=== PATIENT | female | born 1990 ===

== ENCOUNTER 2017-10-28 09:02 | Emergency (ER) | payer OTHER ==
[2017-10-28 09:08] VITALS: BP 131/87; PULSE 105; RESP 18; TEMP 98.3; O2SAT 100
[2017-10-28] MEDS ORDERED: Naproxen 550 mg Tab PO STA (10:14)
[2017-10-28] MEDS ORDERED: Naproxen 550 mg Tab PO ONE (10:37)
--- NOTE | 2017-10-28 10:40 | RAD ---
PROCEDURE: Right Hand Radiographs. HISTORY: Injury COMPARISON: None. FINDINGS: BONES: Bone alignment and mineralization are normal. There is no acute displaced fracture or bone destruction. JOINTS: Normal. No osteoarthritic changes. SOFT TISSUES: Normal. OTHER FINDINGS: None. IMPRESSION: No acute fracture or dislocation.
--- NOTE | 2017-10-28 11:35 | C.PDOC ---
History Of Present Illness Pt states she injured her right hand 2 days ago. Time Seen by Provider: 10/28/17 10:10 Chief Complaint (Nursing): Finger,Hand,&Wrist History Per: Patient Onset/Duration Of Symptoms: Days (2) Current Symptoms Are (Timing): Still Present Quality: "Pain" Severity: Moderate Hands/Wrist (Pic): 1 - pain/swelling Exacerbating Factor(s): Strenuous Use Of Affected Area Additional History Per: Prior Records Past Medical History Reviewed: Historical Data, Nursing Documentation, Vital Signs Vital Signs: Last Vital Signs Temp 98.3 F 10/28/17 09:06 Pulse 105 H 10/28/17 09:06 Resp 18 10/28/17 09:06 BP 131/87 10/28/17 09:06 Pulse Ox 100 10/28/17 09:06 - Medical History PMH: No Chronic Diseases Family History: States: Unknown Family Hx - Social History Hx Alcohol Use: Yes Hx Substance Use: No - Immunization History Hx Tetanus Toxoid Vaccination: No Hx Influenza Vaccination: Yes Hx Pneumococcal Vaccination: No Review Of Systems Except As Marked, All Systems Reviewed And Found Negative. Constitutional: Negative for: Fever, Weakness Cardiovascular: Negative for: Chest Pain Respiratory: Negative for: Shortness of Breath Gastrointestinal: Negative for: Vomiting, Abdominal Pain Musculoskeletal: Positive for: Hand Pain (right). Negative for: Neck Pain, Arm Pain Neurological: Negative for: Weakness, Numbness Physical Exam - Physical Exam Appears: Non-toxic, No Acute Distress Skin: Normal Color, Warm, Dry, No Rash Head: Atraumatic, Normacephalic Eye(s): bilateral: PERRL, EOMI Neck: Normal ROM, Supple Extremity: Normal ROM, Tenderness (right middle finger), Capillary Refill (wnl) , Swelling (around PIP joint of right middle finger) Pulses: Right Radial: Normal Neurological/Psych: Oriented x3, Normal Motor, Normal Sensation ED Course And Treatment O2 Sat by Pulse Oximetry: 100 Pulse Ox Interpretation: Normal - Other Rad Right hand x-rays X-Ray: Viewed By Me, Read By Radiologist Interpretation: IMPRESSION: No acute fracture or dislocation. Progress Note: Right middle finger was placed in finger splint by automotive technology instructor and checked by me. Reassessment Condition: Improved Disposition Counseled Patient/Family Regarding: Studies Performed, Diagnosis, Need For Followup, Rx Given - Disposition Referrals: Raul Armstrong MD [Staff Provider] - Disposition: HOME/ ROUTINE Disposition Time: 11:36 Condition: IMPROVED Additional Instructions: Keep your finger in the splint provided until better. Follow up with a Hand specialist. Return to the ER if you develop worsening of symptoms or if you have any other concerns. Prescriptions: Naproxen [Naprosyn] 1 tab PO BID PRN #20 tab PRN Reason: Pain Instructions: Finger Sprain (ED) - Clinical Impression Clinical Impression: Injury of right hand, Sprain of right middle finger
== END 2017-10-28 11:43 | disposition home or self-care (01) ==
LOC: C.ER 09:02
DX: S63.612A Unspecified sprain of right middle finger, initial encounter (principal); W18.30XA Fall on same level, unspecified, initial encounter; Y92.39 Other specified sports and athletic area as the place of occurrence of the external cause